=== PATIENT | male | born 1965 | race Caucasian/White ===

== ENCOUNTER 2017-03-30 09:55 | Observation (INO) | payer BC ==
[2017-03-30] MEDS ORDERED: Adacel (T-DAP) 0.5 ML VIAL ONE ×2 (10:04→10:06)
[2017-03-30] MEDS ORDERED: Morphine 4 MG/ML VIAL ONE (10:29)
[2017-03-30] MEDS ORDERED: Clindamycin/D5W 900 MG in Premix Bag 1 BAG IVPB SCH (11:00)
[2017-03-30] MEDS ORDERED: Clindamycin/D5W 900 mg/50 ml Premix Bag ONE (11:20)
[2017-03-30] MEDS ORDERED: Bacitracin Zinc 1 Packet ONE (11:29)
--- NOTE | 2017-03-30 13:02 | RAD ---
THREE VIEWS LEFT THUMB: DATE: 03/30/17. HISTORY: The patient cut left thumb and hand with a box car washer. FINDINGS: There is subcutaneous emphysema about the left thumb related to laceration. There is a small osseous excrescence seen at the volar and medial aspect of the mid portion of the proximal phalanx left thum b which may be related to either prior injury or small osteochondroma. There is lucency seen within the most distal and lateral aspect of the proximal phalanx of the thumb, but this appears corticated and may represent either a vascular groove or secondary to a remote avulsion injury. There are calci fications seen dorsal to the interphalangeal joint which also suggests possibility of prior injury. No definite acute fracture or dislocation is seen involving the left thumb. IMPRESSION: 1. Subcutaneous emphysema related to laceration involving the left thumb. 2. Lucency in the distal aspect proximal phalanx left thumb with calcification seen dorsal to the in terphalangeal joint. These findings are likely related to a more remote injury. POS: CANDICE
[2017-03-30] MEDS ORDERED: Bupivacaine PF 0.5% 30 ML VIAL ONE (13:05)
[2017-03-30] MEDS ORDERED: Bacitracin Zinc Ointment 30 gm TUBE ONE (13:05)
[2017-03-30] MEDS ORDERED: Fentanyl 100 MCG/2 ML VIAL ONE ×2 (13:14→16:23)
[2017-03-30] MEDS ORDERED: Fentanyl 250 MCG/5 ML VIAL ONE (13:18)
[2017-03-30] MEDS ORDERED: Promethazine HCl 25 MG/ML VIAL IM PRN (16:06)
[2017-03-30] MEDS ORDERED: Promethazine HCl 25 MG/ML VIAL SLOW IVP PRN (16:06)
[2017-03-30] MEDS ORDERED: Ondansetron HCl/PF 4 MG/2 ML Vial IVP PRN (16:06)
[2017-03-30] MEDS ORDERED: Ketorolac Tromethamine 30 MG/ML VIAL ONE ×2 (16:12→17:37)
[2017-03-30] MEDS ORDERED: Vancomycin HCl 1 GM in Premix Bag 1 BAG IVPB SCH (16:30)
[2017-03-30 17:26] VITALS: BMI 40.4
[2017-03-30] MEDS ORDERED: Propofol 200 MG/20 ML VIAL ONE (17:37)
[2017-03-30] MEDS ORDERED: Glycopyrrolate 0.2 MG/ML 5 ML SYRINGE ONE (17:37)
[2017-03-30] MEDS ORDERED: Succinylcholine Chloride 20 MG/ML 10 ml SYRINGE FS ONE (17:37)
[2017-03-30] MEDS ORDERED: Ondansetron HCl/PF 4 MG/2 ML Vial ONE (17:37)
[2017-03-30] MEDS ORDERED: Lidocaine 1% PF 5 ML VIAL ONE (17:37)
[2017-03-30] MEDS: Sodium Chloride 0.9% 1,000 ML IV SCH ×2 (18:14→23:18)
[2017-03-30] MEDS: Ketorolac Tromethamine 30 MG/ML VIAL IVP SCH ×2 (18:21→23:14)
[2017-03-30] MEDS: traMADol HCl 50 MG TAB PO PRN (20:42)
[2017-03-30] MEDS: Famotidine/PF 20 mg/2ml Vial SLOW IVP SCH (20:42)
[2017-03-30] MEDS: Acetaminophen 325 MG TAB PO PRN (20:42)
[2017-03-31] MEDS ORDERED: Vancomycin HCl 1 GM in Premix Bag 1 BAG IVPB SCH (03:00)
[2017-03-31] MEDS: traMADol HCl 50 MG TAB PO PRN ×2 (03:32→16:45)
[2017-03-31] MEDS: Acetaminophen 325 MG TAB PO PRN (03:32)
[2017-03-31] MEDS: Ketorolac Tromethamine 30 MG/ML VIAL IVP SCH ×2 (05:45→13:54)
--- NOTE | 2017-03-31 06:30 | OP ---
DATE OF SURGERY: 03/30/2017 PREOPERATIVE DIAGNOSES: 1. Open fracture in the neck of the proximal phalanx of the thumb. 2. Open distal interphalangeal joint with dislocation. 3. Extensor tendon laceration. FINDINGS: 1. A 90% extensor tendon laceration with a slight avulsion from its insertion over at least 75% of t he tendon, the central 75% of fibers. 2. Distal phalanx fracture, oblique slight fracture underneath the portion of the tendon that was st ill intact. 3. Subluxed or dislocated interphalangeal joint thumb. 4. Palmar wound almost 6 cm long over the neurovascular bundle without evidence of digital nerve lac eration clinically or by exploration. 5. Open wound, dorsal interphalangeal joint. PROCEDURES PERFORMED: 1. Debridement of wound, dorsal thumb. 2. Debridement of wound, palmar thumb (debridement of the wound using the following techniques): A. Excisional technique. B. Use of Jordan blade, tenotomy scissors, 11 blade knife. C. There was no gross contamination. This included down to, but not involving the bone. 3. Debridement of material-associated open fracture. A. Use of excisional technique. B. Curette was used along with a Jordan blade along with a [place]. This was down to including bone a nd joint which were both open. C. Incisional technique. D. Minimal contamination was seen. Small particles embedded into bone. 4. Open reduction internal fixation dislocated interphalangeal joint, thumb. 5. Open reduction internal fixation via separate K-wire, the base of the thumb distal phalanx fractu re. 6. Open joint pain. 7. Repair of the extensor hallucis longus tendon including reconstruction back to bone using Mitek a nchor. 8. Neuroplasty, digital nerve. 9. Digital nerve thumb, radial aspect, closure of wound 10 cm total at the thumb. 10. Digital nerve neuroplasty of the thumb digital nerve. ESTIMATED BLOOD LOSS: 25 mL ANESTHESIA: SANDER, Noble, given general LMA technique augmented by 20 mL 0.5% Marcaine block, no epin ephrine. 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 FINDINGS: The joint was subluxed. The distal phalanx fracture was displaced, the nerve did not show actual laceration with neuroplasty, and there was only minimal amount of particles/flecks of dirt se en deep in the wound and in the joint. DESCRIPTION OF PROCEDURE: After successful general LMA technique by Noble BOUCHER for [facility] [employer] in [facility] in [place], [place], the patient had the time out done appropriately to identify the damaged thumb which was confirmed as the left side, the limb was exsanguinated, tourniq uet inflated to 250 mmHg pressure and then, we extended the palmar incision 1.5 cm proximal and a debby will incision 5 mm, distal portion of the thumb incision 5 mm on the palmar aspect, avoiding the neuro vascular bundle and then began to do a neuroplasty under magnification and saw the digital nerve comp letely into and out of the field of damage indicating no damage. We then completed the irrigation of this site with 3 liters of normal saline Pulsavac pressure. The distal dorsal wound completely from the palmar wound, the finger had the extensor mecha nism visualized and once we dissected the skin free and performed a debridement of the skin, subcutan eous tissue, and the joint as described above. Once this instrumentation technique was completed, we clearly saw the extensor hallucis longus tendon, it was no longer attached to the bone, had been lac erated right near its insertion leaving very little fibrous repair in the central 70% of extensor mec hanism all the way the medial/lateral aspects, was still repairable. We then finished the joint debr idement, pinned the joint in approximately 5 degrees of flexion and then began to pursue the fracture repair. The fracture was repaired as an oblique sliced fracture that was almost 6 mm in depth at th e central portion using 2 crossed K-wires. This was after the joint had been pinned and reduced. Th en, once confirmed position here, we visualized the extensor mechanism and saw that it was intact onl y at the dorsal radial 20% of fibers leaving that unstable, so we then finished passing the wires in appropriate position for reduction of the distal phalanx base fracture, the wires from the joint pinn ing wer visualized, we found space between the two to put a Mitek anchor, the mini anchor, and then u sing a Janina weave to bring the tendon repair into the bony trough created by the anchor and tighte george it with excellent security. We were then able to visualize and repair the 25% medial and lateral to this reconstruction by repairing it with 4-0 Prolene interrupted [id number] pattern. This g ave excellent tension and extensor mechanism did not move. There was no gross motion with probing an d then we were able to finish the repair. We then completed the neuroplasty on the palmar side, visu alized that the nerve including this trifurcation was intact. We visualized the palmar volar plate w consuelo had a small laceration. We now repaired this and then through this, we could see the flexor dariel licis longus was still intact. We then finished the irrigation with additional 1 liter normal saline , released the tourniquet to obtain hemostasis and closed both wounds beginning with the dorsal wound with appropriate consequences. C-arm having brought to the field have got us throughout the entire internal fixation to include the joint and the fracture, we have confirmed the position of wires. Th ey were then cut below the skin because it will need to stay in place for at least 8 weeks. The yanira ent left the operating room without evidence of anesthetic or operative complication with incision cl osed with 4-0 nylon interrupted simple pattern after debridement of the wound and a bulky dressing wi th sugar tong and splint.
[2017-03-31] MEDS ORDERED: diphenhydrAMINE 50 MG CAP PO PRN (09:37)
[2017-03-31] MEDS: Famotidine/PF 20 mg/2ml Vial SLOW IVP SCH (09:39)
[2017-03-31] MEDS ORDERED: Famotidine 20 MG TAB PO SCH ×2 (09:45→21:00)
[2017-03-31 17:00] VITALS: BP 168/87; TEMP 98.3
--- NOTE | 2017-04-01 06:07 | DIS ---
DATE OF ADMISSION: 03/30/2017 DATE OF DISCHARGE: 03/31/2017 ADMISSION DIAGNOSES: 1. Open left thumb laceration with open joint and distal phalanx fracture. 2. Extensor tendon laceration, zone 1 open and 3, thumb complex wound, 10 cm. DISCHARGE DIAGNOSES: 1. Open left thumb laceration with open joint and distal phalanx fracture. 2. Extensor tendon laceration, zone 1 open and 3, thumb complex wound, 10 cm. HOSPITAL COURSE: The patient was admitted because of the open joint, subluxation, open fracture and wound with tendon involvement. It was felt to be an urgent procedure to decrease the risk of infecti on, undergo a near immediate debridement, so he was admitted to the hospital and underwent a thumb in terphalangeal joint open debridement, thumb proximal phalanx fracture, open reduction and fixation an d debridement of material-associated with open fracture, reconstruction of extensor hallucis longus t endon using an anchor and neuroplasty of the radial digital nerve because of the wound pattern. We a lso were able to primarily close the wound and we decided that the patient would benefit from this pr ocedure. After the procedure where the joint was congruent tendon was repaired via reconstruction and he mostasis obtained, the patient was admitted. He had no fever, chills or evidence of infection. His digit was pink on the date of discharge with a 1.5 second capillary refill and minimal hypersensitivi ty. The patient understands the plan of discharge. He will get an arm sling to keep it elevated and will be discharged on clindamycin, Toradol and [place].
--- NOTE | 2017-04-02 07:54 | RAD ---
FINGERS LEFT HAND 4 VIEWS: Date: 03/30/17 Four fluoroscopic views from OR presented. INDICATION: Intraoperative imaging during internal fixation procedure. IMPRESSION: These views demonstrate pinning of the distal phalanx of the thumb. POS: CANDICE
== END 2017-03-31 17:00 | disposition home or self-care (01) ==
LOC: ERS 09:55 → SURG A 12:20 → SDC 12:24 → SURG A 17:20
PROVIDERS: ADMIT Orthopaedic Surgery Hand Surgery; ATTEND Orthopaedic Surgery Hand Surgery
PROC: 0PSS04Z Reposition Left Thumb Phalanx with Internal Fixation Device, Open Approach (ICD-10-PCS; principal; 2017-03-30)
PROC: 01N60ZZ Release Radial Nerve, Open Approach (ICD-10-PCS; 2017-03-30)
PROC: 0LM80ZZ Reattachment of Left Hand Tendon, Open Approach (ICD-10-PCS; 2017-03-30)
DX: S62.512B Displaced fracture of proximal phalanx of left thumb, initial encounter for open fracture (principal); S63.125A Dislocation of interphalangeal joint of left thumb, initial encounter; S66.222A Laceration of extensor muscle, fascia and tendon of left thumb at wrist and hand level, initial encounter; E66.01 Morbid (severe) obesity due to excess calories; G47.30 Sleep apnea, unspecified; W31.89XA Contact with other specified machinery, initial encounter; Z68.41 Body mass index [BMI] 40.0-44.9, adult; Z79.899 Other long term (current) drug therapy; Z88.0 Allergy status to penicillin; Z99.89 Dependence on other enabling machines and devices; Z87.891 Personal history of nicotine dependence
CPT/HCPCS: 76001; 90471; 90715; 96365; 96375; 96376; C1713; G0378; G0390; G8978-GP-CH; G8979-GP-CH; G8980-GP-CH; G8987-GO-CJ; G8988-GO-CJ; G8989-GO-CJ; J1885; J2001; J2270; J2405; J2704; J3010; J3370; J3490; S0020; S0028